=== PATIENT | female | born 1960 | race Caucasian/White ===

== ENCOUNTER 2022-02-08 16:29 | Inpatient (IN) | payer BC ==
[~2022-02-08] VITALS: Ht 157.5 cm; Wt 65.0 kg
[2022-02-08 17:37] LABS: BASO % 0.3 % (0.0-2.0); EOS % 0.2 % (0.0-4.0); GRAN % 84.1 % (42.2-75.2); HEMATOCRIT 37.1 % (37.0-47.0); HEMOGLOBIN 12.1 g/dl (12.5-16.0); LYMPH # 1.1 K/mm3 (1.2-3.4); LYMPH % 8.1 % (20.0-51.0); MEAN CELL VOLUME 94 fl (80.0-100.0); MEAN CORPUSCULAR HEMOGLOBIN 31 pg (27-31); MEAN CORPUSCULAR HGB CONC 33 g/dl (33.0-37.0); MEAN PLATELET VOLUME 10.4 fl (7.4-10.4); MONO # 0.9 K/mm3 (0.1-0.6); MONO % 6.7 % (1.7-9.3); PLATELET COUNT 259 K/mm3 (130-400); RED BLOOD COUNT 3.95 M/mm3 (4.10-5.30); REDCELL DISTRIBUTION WIDTH-CV 14.2 % (11.5-14.5)
[2022-02-08 17:50] LABS: CALCIUM 9.2 mg/dL (8.4-10.2); CREATININE, serum 0.71 mg/dL (0.57-1.11); PHOSPHOROUS 2.4 mg/dL (2.3-4.7); POTASSIUM 3.7 mmol/L (3.5-4.5)
--- NOTE | 2022-02-08 21:30 | NUR ---
PT ADMITTED TO ROOM 329. ADMISSION AND PHYSICAL ASSESSMENTS COMPLETED. VS OBTAINED. MEDICATIONS REVIEWED. RT AC IV PATENT. LT BREAST HAS REDNESS AND SOME DRAINAGE. PT DENIES PAIN. PT HAD A DOUBLE MASTECTOMY IN OCTOBER AND WAS EXPERIENCING A FEVER YESTERDAY WHICH BROUGHT HER IN TO THE HOSPITAL. NO OTHER NEEDS AT THIS TIME. CALL LIGHT WITHIN REACH.
[2022-02-08] MEDS ORDERED: AMBIEN 10MG10 MG PO (21:37)
[2022-02-08] MEDS ORDERED: ADDERALL30 MG PO (21:38)
[2022-02-08] MEDS ORDERED: CYMBALTA 60MG60 MG PO (21:38)
[2022-02-08] MEDS ORDERED: ASPIRIN E.C. 8181 MG PO (21:39)
[2022-02-08] MEDS ORDERED: VALTREX1 GM PO (21:40)
[2022-02-08] MEDS ORDERED: PRILOSEC 20MG20 MG PO (21:42)
[2022-02-08 21:56] VITALS: BP 143/69; PULSE 108; TEMP 99.2
--- NOTE | 2022-02-08 23:31 | NUR ---
Vancomycin Initial Dosing Pharmacy Note Ordering provider: Delia Ross MD Indication/duration: Cellulitis x 5 days Relevant comorbidities: N/A LABS: WBC = 13.1, SCr = 0.71 Recommendation: Will check troughs and follow levels. Loading dose: 1.25 grams Maintenance dose: 750 mg every 12 hours Trough goal: 10-15 ug/mL
--- NOTE | 2022-02-08 23:33 | NUR ---
Vancomycin Initial Dosing Pharmacy Note Ordering provider: Delia Ross MD Indication/duration: Cellulitis x 5 days. Relevant comorbidities: N/A LABS: WBC = 13.1, SCr = 0.71 Recommendation: Will check troughs and follow levels. Loading dose: 1.25 grams Maintenance dose: 750 mg every 12 hours Trough goal: 10-15 ug/mL
[2022-02-09] VITALS (7 sets, daily range): BP systolic 99–157; BP diastolic 57–77; PULSE 65–96; TEMP 98.1–99.2
--- NOTE | 2022-02-09 10:02 | NUR ---
SW met with the patient to discuss discharge plan. The patient lives alone in [place], [place]. She has been in [place] visiting her daughter, Hermila (ph#[phone]). She reports independence with ADLs and does not have any DME. The patient's PCP is Dr. Luis Miguel Brown in [place] and she plans to utilize [facility] while here. The patient does not have a DPOA-HC and she was not interested in completing one while here. The patient plans to return back to her daughter's home upon discharge. No additional needs at this time. *Discharge plan: home to daughters*
[2022-02-09 11:36] LABS: INR 1.1 (0.8-3.0); PROTHROMBIN TIME 12.2 SECONDS (9.7-12.8)
--- NOTE | 2022-02-09 12:49 | NUR ---
PATIENT ALERT AND ORIENTED X4. VSS. PATIENT HERE FOR LEFT BREAST IMPLANT INFECTION. UPON ENTRY, PATIENT WAS SLEEPING. GOWN AND BEDDING SOAKED FROM DRAINAGE. PATIENT CLEANED UP, BEDDING CHANGED, AND DRESSING APPLIED TO PATIENT'S LEFT BREAST. PATIENT DENIES PAIN AT THIS TIME. ASSESSMENT PERFORMED. AM MEDS ADMINISTERED. SLOW ZOSYN RUNNING IN RIGHT AC. PATIENT RESTING IN BED WITH CALL LIGHT NEAR.
--- NOTE | 2022-02-09 20:14 | NUR ---
PT A&O RESTING IN BED. ASSESSMENT COMPLETED AND MEDS GIVEN. PT DENIES PAIN. DRESSING TO CHEST CDI. ZOSYN TO RW AT 25 ML\HR. NO OTHER NEEDS AT THIS TIME. CALL LIGHT WITHIN REACH.
[2022-02-10 04:32] VITALS: BP 125/70; PULSE 79; TEMP 99.3
[2022-02-10 06:45] LABS: BASO % 0.5 % (0.0-2.0); EOS # 0.1 K/mm3 (0.0-0.7); EOS % 2.2 % (0.0-4.0); GRAN # 4.1 K/mm3 (1.4-6.5); GRAN % 70.4 % (42.2-75.2); HEMOGLOBIN 10.8 g/dl (12.5-16.0); LYMPH % 16.7 % (20.0-51.0); MEAN CELL VOLUME 94 fl (80.0-100.0); MEAN CORPUSCULAR HEMOGLOBIN 30 pg (27-31); MEAN CORPUSCULAR HGB CONC 32 g/dl (33.0-37.0); MEAN PLATELET VOLUME 10.9 fl (7.4-10.4); MONO # 0.5 K/mm3 (0.1-0.6); MONO % 9.2 % (1.7-9.3); PLATELET COUNT 279 K/mm3 (130-400); RED BLOOD COUNT 3.58 M/mm3 (4.10-5.30)
[2022-02-10 06:46] LABS: CALCIUM 8.7 mg/dL (8.4-10.2); CREATININE, serum 0.68 mg/dL (0.57-1.11); POTASSIUM 3.4 mmol/L (3.5-4.5)
[2022-02-10 06:53] LABS: HEMATOCRIT 33.5 % (37.0-47.0)
[2022-02-10 08:00] VITALS: BP 152/77; PULSE 89; TEMP 99.1
--- NOTE | 2022-02-10 09:59 | NUR ---
Initial visit; Patient thanked [facility] for looking in on her and offering God's blessings though declined further Spiritual Care.
--- NOTE | 2022-02-10 10:00 | NUR ---
PATIENT ALERT AND ORIENTED X4. VSS. PATIENT HERE FOR LEFT BREAST INFECTION. DRESSING CDI. PATIENT DENIES PAIN AT THIS TIME. ZOSYN RUNNING IN IV TO LEFT FOREARM. CALL LIGHT WITHIN REACH.
[2022-02-10 11:52] VITALS: BP 144/89; PULSE 84; TEMP 98.2
[2022-02-10] MEDS ORDERED: DOXYCYCLINE HY100 MG PO (17:36)
--- NOTE | 2022-02-10 18:58 | NUR ---
DISCHARGE INSTRUCTIONS PROVIDED. PATIENT EDUCATION GIVEN. PATIENT INSTRUCTED ON FOLLOW UP TOMORROW AND SCHEDULED SURGERY. PATIENT DENIES ANY QUESTIONS OR CONCERNS. IV DC'D. PATIENT ESCORTED OUT.
== END 2022-02-10 18:40 | disposition home or self-care (01) | DRG 919 ==
LOC: COL.ER 16:29 → SURG 19:34
PROVIDERS: Emergency Medicine; ADMIT Student in an Organized Health Care Education/Training Program
DX: M96.843 Postprocedural seroma of a musculoskeletal structure following other procedure (principal); A41.9 Sepsis, unspecified organism; L03.313 Cellulitis of chest wall; F90.9 Attention-deficit hyperactivity disorder, unspecified type; G47.00 Insomnia, unspecified; G89.29 Other chronic pain; K21.9 Gastro-esophageal reflux disease without esophagitis; Y83.8 Other surgical procedures as the cause of abnormal reaction of the patient, or of later complication, without mention of misadventure at the time of the procedure; Z87.891 Personal history of nicotine dependence; Z79.82 Long term (current) use of aspirin; Z98.51 Tubal ligation status; Z90.13 Acquired absence of bilateral breasts and nipples; Y92.89 Other specified places as the place of occurrence of the external cause; Z23 Encounter for immunization
CPT/HCPCS: J0780; J1885; J2543; J3370; J7050; J7120; Q9967